=== PATIENT | female | born 1990 | race Caucasian/White ===

== ENCOUNTER 2021-05-07 15:32 | Emergency (ER) | payer OTHER ==
[~2021-05-07] VITALS: Ht 157.5 cm; Wt 68.2 kg
[~2021-05-07 15:32] MED LIST: PREN1TAB52 PO
[2021-05-07 15:45] VITALS: BP 113/67
== END 2021-05-07 18:26 | disposition home or self-care (01) ==
LOC: EMS 15:34
DX: R21 Rash and other nonspecific skin eruption (principal); Z79.899 Other long term (current) drug therapy
CPT/HCPCS: 99283; Z7502